=== PATIENT | female | born 1970 | race Caucasian/White ===

== ENCOUNTER → 2025-04-08 | Outpatient (CLI) | payer OTHER, SELFPAY ==
--- NOTE | 2025-04-08 12:30 | XR_ITS ---
Examination: Ultrasound abdominal aorta TECHNIQUE: Grayscale sonographic images abdominal aorta Date and time: April 08, 2025 1248 hours INDICATIONS: Smoking history 20 years. FINDINGS: Transverse dimension proximal aorta 2.3 cm mid aorta 1.5 cm distal aorta 1.7 cm right iliac 1.0 cm left iliac 0.9 cm IMPRESSION: Negative for abdominal aortic aneurysm
--- NOTE | 2025-04-08 13:00 | XR_ITS ---
Examination: CT chest, without intravenous contrast. Sagittal and coronal 2-D reconstructions. Exam date and time: April 08, 2025 1311 hours INDICATIONS: Smoking history 20 years CTDI:vol (mGy) 13.2 DLP: (mGycm) 186 Technique: Multiple 3.0 mm axial sections of the chest to been obtained. Bone and lung density settings are obtained. Sagittal and coronal 2-D reconstructions have been obtained. Low dose protocols were performed. One or more of the following dose reduction techniques were used; automated exposure control, adjustment of the mA and/or KV according to patient size, use of iterative reconstruction technique. Findings: No thoracic aortic aneurysm dilatation Pulmonary artery segments are not enlarged 7 mm pulmonary nodule left lower lobe image 223 No pneumonia or pulmonary edema No focal liver or splenic lesions No pancreatic mass IMPRESSION: 7 mm pulmonary nodule left lower lobe, with this study as baseline suggest continued 6 month follow-up CT chest without contrast
== END | disposition home or self-care (01) ==
PROVIDERS: PCP Physician Assistant Medical; Referring Provider Physician Assistant Medical; Visit Provider Physician Assistant Medical
DX: Z13.6 Encounter for screening for cardiovascular disorders (principal); R91.1 Solitary pulmonary nodule; F17.200 Nicotine dependence, unspecified, uncomplicated
CPT/HCPCS: 71271; 76770